=== PATIENT | female | born 1955 | race Caucasian/White ===

== ENCOUNTER 2018-04-18 07:58 | Outpatient (CLI) | payer MEDICAID, SELFPAY ==
--- NOTE | 2018-04-18 10:32 | DI.RAD_ITS ---
SYMPTOM/DIAGNOSIS: H/O FALL, ONGOING BACK PAIN, ? 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 There are five lumbar type vertebral bodies. There is normal alignment. No spondylolisthesis is seen. No acute fractures or subluxations are present. At L 2-3 through L 5-S 1, there is mild disc space narrowing. Endplate osteophytes are seen from L 1-2 through L 5-S 1. There are degenerative changes of the facets seen in the lower lumbar spine. The bones are normally mineralized. IMPRESSION: 1. No acute fracture or subluxation in the lumbar spine. 2. Mild to moderate degenerative changes in the lumbar spine.
== END 2018-04-18 08:18 ==
PROVIDERS: PCP Internal Medicine; Visit Provider Radiology Radiation Oncology
DX: M54.5 Low back pain (principal); M47.817 Spondylosis without myelopathy or radiculopathy, lumbosacral region; M25.78 Osteophyte, vertebrae; Z91.81 History of falling
CPT/HCPCS: 72110